=== PATIENT | male | born 1950 | race Caucasian/White ===

== ENCOUNTER 2019-08-31 18:13 | Emergency (ER) | payer BC, OTHER ==
[2019-08-31] MEDS ORDERED: LIDOCAINE 1% W/EPI 1:100,000 MDV 20 ML VIAL ONE (18:31)
[2019-08-31] MEDS ORDERED: CEPHALEXIN 250 MG CAP ONE (19:48)
[2019-08-31] MEDS ORDERED: HYDROCODONE/APAP 7.5/325 MG TAB ONE (19:48)
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
--- NOTE | 2019-08-31 20:07 | RAD REPORT ---
EXAM DESCRIPTION: RAD - Knee Left 3 View - 08/31/2019 7:37 pm CLINICAL HISTORY: PAIN COMPARISON: No comparisons FINDINGS: Left total knee arthroplasty is present. Soft tissue swelling is seen the anterior aspect of the knee. Small joint effusion. No fracture evident.
[2019-08-31 23:02] VITALS: BP 107/63; TEMP 97; O2SAT 97
== END 2019-08-31 20:42 | disposition home or self-care (01) ==
LOC: ER 18:13
PROC: 0JQP0ZZ Repair Left Lower Leg Subcutaneous Tissue and Fascia, Open Approach (ICD-10-PCS; principal; 2019-08-31)
DX: S81.012A Laceration without foreign body, left knee, initial encounter (principal); V18.0XXA Pedal cycle driver injured in noncollision transport accident in nontraffic accident, initial encounter; Y93.89 Activity, other specified; Y92.89 Other specified places as the place of occurrence of the external cause
CPT/HCPCS: 99284

== ENCOUNTER 2019-09-09 09:16 | Emergency (ER) | payer OTHER ==
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
--- NOTE | 2019-09-09 09:42 | EDPHYS ---
Physician Documentation [facility] Name: Weston Osborn Jr Age: 69 yrs Sex: Male : 1950 Arrival Date: 09/09/2019 Time: 09:17 Bed 13 Private MD: ED Physician Kim Ferrer HPI: 09/09 09:42 This 69 yrs old Male presents to ER via Ambulatory with complaints of jmm Incision Problem - wound check. 09:42 Patient presents to ED for recheck of: laceration. The affected area is on the right jmm leg. Previous treatment: sutures. The patient has not experienced similar symptoms in the past. This is a 69 year old male with a history of htn that presents to the ED with complaints of a laceration to his right leg which was sutured 9 days ago. Patient states his lower anterior leg is tender and will become red. Patient denies fever or chills but is concerned his wound may now be infected. Patient states the redness is relieved after elevating his leg. . Historical: - Allergies: 09:28 No Known Allergies; ss - PMHx: 09:28 Hypertension; ss - Immunization history:: Adult Immunizations up to date. - Social history:: Smoking status: Patient/guardian denies using tobacco. - Ebola Screening: : Patient denies exposure to infectious person Patient denies travel to an Ebola-affected area in the 21 days before illness onset. ROS: 09:42 Constitutional: Negative for fever, chills, and weight loss, Cardiovascular: Negative jmm for chest pain, palpitations, and edema, Respiratory: Negative for shortness of breath, cough, wheezing, and pleuritic chest pain. 09:42 Skin: Positive for erythema. 09:42 All other systems are negative. Exam: 09:42 Constitutional: This is a well developed, well nourished patient who is awake, alert, jmm and in no acute distress. Head/Face: atraumatic. Eyes: EOMI, no conjunctival erythema appreciated ENT: Moist Mucus Membranes Neck: Trachea midline, Supple Chest/axilla: Normal chest wall appearance and motion. Cardiovascular: Regular rate and rhythm. No edema appreciated Respiratory: Normal respirations, no respiratory distress appreciated Abdomen/GI: Non distended, soft Back: Normal ROM 09:42 Musculoskeletal/extremity: FROM appreciated to the right knee. No edema appreciated to the lower extremity, compartments are soft, NVI. 09:42 Skin: erythema noted along the laceration. non tender to palpation. 09:42 Neuro: Orientation: is normal, Mentation: is normal, Memory: is normal. 09:42 Psych: Behavior/mood is pleasant, cooperative. Vital Signs: 09:25 BP 119 / 93; Pulse 69; Resp 16; Temp 98.0(O); Pulse Ox 100% on R/A; Weight 97.52 kg; ss Height 5 ft. 7 in. (170.18 cm); Pain 0/10; 09:25 Body Mass Index 33.67 (97.52 kg, 170.18 cm) ss MDM: 09:34 Patient medically screened. [facility] 09:39 Data reviewed: vital signs, nurses notes. Counseling: I had a detailed discussion with [facility] the patient and/or guardian regarding: the historical points, exam findings, and any diagnostic results supporting the discharge/admit diagnosis, the need for outpatient follow up, to return to the emergency department if symptoms worsen or persist or if there are any questions or concerns that arise at home. ED course: Patient given wound infection return precautions. . 09:48 ED course: Patient is alert and non toxic in appearance in the ED. Patient was given [facility] wound infection return precautions. Patient advised to not remove sutures at this time due to concerns for dehiscence. Patient may have an early cellulitis due to complaints of increased swelling and pain to the lower leg. Patient will be prescribed oral abx and is given strict return precautions. Patient understood and agrees with the plan of care. . Administered Medications: No medications were administered Disposition: 15:18 Co-signature as Attending Physician, Kim Ferrer MD. ma2 Disposition: 09/09/19 09:40 Discharged to Home. Impression: Encounter for change or removal of nonsurgical wound dressing. - Condition is Stable. - Discharge Instructions: Stitches, Jasper, or Adhesive Wound Closure. - Prescriptions for Bactrim DS 800- 160 mg Oral Tablet - take 1 tablet by ORAL route every 12 hours for 7 days; 14 tablet. - Medication Reconciliation Form, Thank You Letter, Antibiotic Education, Prescription Opioid Use form. - Follow up: Private Physician; When: 2 - 3 days; Reason: Recheck today's complaints, Continuance of care, Re-evaluation by your physician. Signatures: Tonya Pool RN RN Con Bruno PA PA jmm Smirch, Shelby, RN RN Kim Ferrer MD MD ma2 Corrections: (The following items were deleted from the chart) 09:50 09:40 09/09/2019 09:40 Discharged to Home. Impression: Encounter for change or removal sv of nonsurgical wound dressing. Condition is Stable. Forms are Medication Reconciliation Form, Thank You Letter, Antibiotic Education, Prescription Opioid Use. Follow up: Private Physician; When: 2 - 3 days; Reason: Recheck today's complaints, Continuance of care, Re-evaluation by your physician. dolores
[2019-09-09 09:56] VITALS: BP 119/93; TEMP 98; O2SAT 100
== END 2019-09-09 09:50 | disposition home or self-care (01) ==
LOC: ER 09:16
DX: Z48.00 Encounter for change or removal of nonsurgical wound dressing (principal); I10 Essential (primary) hypertension
CPT/HCPCS: 99282

== ENCOUNTER 2025-07-02 08:03 | Emergency (ER) | payer OTHER ==
[2025-07-02] MEDS ORDERED: ACETAMINOPHEN 500 MG TAB ONE (08:23)
[2025-07-02 09:00] LABS: Absolute Lymphocytes (CBC) 0.2 K/uL (0.7-4.9); Hematocrit 39.9 % (39.6-49.0); Hemoglobin 12.7 g/dL (13.6-17.9); MCH 25.9 pg (27.0-35.0); MCHC 31.9 g/dL (32.0-36.0); MCV 81.3 fL (80-100); MPV 9.2 fL (7.6-11.3); Nucleated RBC Absolute Count 0.0 (0-0); Nucleated Red Blood Cells % 0.0 % (0-0); RBC Red Blood Cell Count 4.91 M/uL (4.33-5.43); White Blood Count 16.00 thou/uL (4.3-10.9)
[2025-07-02 09:10] LABS: PT Prothrombin Time 13.4 SECONDS (10-13.0); PTT, Activated Partial Thromb 27.7 SECONDS (27.2-37.4); Protime INR 1.19
[2025-07-02 09:20] LABS: ALT/SGPT 47.0 U/L (16-61); AST/SGOT 13.0 U/L (15-37); Albumin 3.1 g/dL (3.4-5.0); Albumin/Globulin Ratio 0.9 (1.1-1.8); Alkaline Phosphatase 73.0 U/L (45-117); Anion Gap 10.0 mEq/L (5.0-15.0); BUN Blood Urea Nitrogen 21.0 mg/dL (7-18); Globulin 3.4 g/dL (2.3-3.5); Glucose Level 117.0 mg/dL (74-106); Potassium 4.0 mEq/L (3.5-5.1)
[2025-07-02 09:24] LABS: Influenza A Ag Negative; Influenza B Ag Negative; SARS-CoV-2 Antigen Rapid Res Negative (Negative)
[2025-07-02] MEDS ORDERED: CLINDAMYCIN 600MG/D5W 50 ML IV ONE (09:33)
--- NOTE | 2025-07-02 10:26 | RAD REPORT ---
EXAM:Extremity Venous Uni Ltd HISTORY: Right leg pain TECHNIQUE: Sonographic evaluation right lower extremity performed.Grayscale, color and spectral franco sis performed on all vessels COMPARISON: None. FINDINGS: Right common femoral, superficial femoral, greater saphenous, popliteal and posterior tibial veins ar e compressible and demonstrate augmentation. Doppler demonstrates good flow. 3.7 x 1.4 x 1.9 cm right inguinal lymph node IMPRESSION: No evidence of deep venous thrombosis involving the right lower extremity.
--- NOTE | 2025-07-02 10:31 | ER ---
Nurse's Notes [facility] Name: Weston Osborn Jr Age: 74 yrs Sex: Male : 1950 Arrival Date: 07/02/2025 Time: 08:03 Bed 23 Private MD: Diagnosis: Cellulitis of right lower limb;Unilateral inguinal hernia, without obstruction or gangrene Presentation: 07/02 08:16 Chief complaint: Patient states: RLE swelling, redness, pain for 2 days. Fever up to ll1 102 at home. Coronavirus screen: Client denies travel out of the [place] in the last 14 days. At this time, the client does not indicate any symptoms associated with coronavirus-19. Ebola Screen: Patient denies travel to an Ebola-affected area in the 21 days before illness onset. Initial Sepsis Screen: Does the patient meet any 2 criteria? No. Patient's initial sepsis screen is negative. Does the patient have a suspected source of infection? No. Patient's initial sepsis screen is negative. Risk Assessment: Do you want to hurt yourself or someone else? Patient reports no desire to harm self or others. Onset of symptoms was July 01, 2025. 08:16 Method Of Arrival: Ambulatory ll1 08:16 Acuity: EUNICE 3 ll1 Historical: - Allergies: 09:00 No Known Allergies; mb9 - PMHx: 09:00 Hypertension; mb9 - PSHx: 09:00 None; mb9 - Immunization history:: Adult Immunizations up to date. - Infectious Disease History:: Denies. - Social history:: Smoking status: Patient denies any tobacco usage or history of. Screenin:58 [facility] ED Fall Risk Assessment (Adult) History of falling in the last 3 months, mb9 including since admission No falls in past 3 months (0 pts) Confusion or Disorientation No (0 pts) Intoxicated or Sedated No (0 pts) Impaired Gait No (0 pts) Mobility Assist Device Used No (0 pt) Altered Elimination No (0 pt) Score/Fall Risk Level 0 - 2 = Low Risk Oriented to surroundings, Maintained a safe environment, Educated pt \T\ family on fall prevention, incl call for assistance when getting out of bed. Abuse screen: Denies threats or abuse. Nutritional screening: No deficits noted. Tuberculosis screening: No symptoms or risk factors identified. Assessment: 08:57 General: Appears in no apparent distress. Behavior is calm, cooperative. Pain: mb9 Complains of pain in right leg Pain does not radiate. Pain currently is 5 out of 10 on a pain scale. Quality of pain is described as throbbing, Pain began suddenly. Neuro: Wilde Agitation-Sedation Scale (RASS): 0 - Alert and Calm Level of Consciousness is awake, alert, obeys commands, Oriented to person, place, time, situation, Appropriate for age. Cardiovascular: Heart tones S1 S2 present Patient's skin is warm and dry. Respiratory: Reports cough that is Airway is patent Respiratory effort is even, unlabored, Respiratory pattern is regular, symmetrical, Breath sounds are clear bilaterally. GI: Abdomen is round non-distended, Bowel sounds present X 4 quads. Abd is soft and non tender X 4 quads. : No signs and/or symptoms were reported regarding the genitourinary system. EENT: Reports nasal congestion. Derm: Skin is pink, warm \T\ dry. Musculoskeletal: Range of motion: intact in all extremities, 09:43 Reassessment: Patient appears in no apparent distress at this time. No changes from mb9 previously documented assessment. Patient and/or family updated on plan of care and expected duration. Pain level reassessed. Patient is alert, oriented x 3, equal unlabored respirations, skin warm/dry/pink. 09:43 Reassessment: Ultrasound at bedside. mb9 10:45 Reassessment: D/C pending IV fluids. mb9 11:54 Reassessment: No changes from previously documented assessment. Patient and/or family mb9 updated on plan of care and expected duration. Pain level reassessed. Patient is alert, oriented x 3, equal unlabored respirations, skin warm/dry/pink. Vital Signs: 08:16 BP 125 / 57; Pulse 83; Resp 18; Temp 101.2; Pulse Ox 99% ; Weight 90.72 kg; Height 5 ll1 ft. 8 in. ; Pain 5/10; 09:42 BP 109 / 57; Pulse 68; Resp 18; Temp 98.9(O); Pulse Ox 100% on R/A; mb9 10:45 BP 97 / 77; Pulse 85; Resp 18; Pulse Ox 98% ; mb9 11:11 BP 100 / 57; Pulse 60; Resp 18; Pulse Ox 100% on R/A; mb9 11:54 BP 104 / 58; Pulse 70; Resp 18; Pulse Ox 100% on R/A; mb9 08:16 Body Mass Index 30.41 (90.72 kg, 172.72 cm) ll1 08:16 Pain Scale: Adult ll1 ED Course: 08:11 Patient arrived in ED. im 08:14 [facility] Ott [facility]C [facility]. kb 08:14 Norberto Fernando MD is Attending Physician. kb 08:17 Triage completed. ll1 08:25 Arm band placed on Patient placed in an exam room, on a stretcher. ll1 08:25 Patient has correct armband on for positive identification. Bed in low position. ll1 Provided Education on: ER procedures and process. Warm blanket given. 08:28 Mel Pisano RN is Primary Nurse. mb9 08:40 Initial lab(s) drawn, by me, sent to lab. EKG done, by ED staff, reviewed by Dacia BUSBY. Inserted saline lock: 20 gauge in right forearm, using aseptic technique. Blood collected. Flushed with 10 mL NS. 08:56 COVID-19 Ag + Flu A+B Ag Sent. mb9 09:53 US Extremity Venous Unilateral Ltd In Process Unspecified. EDMS 10:30 David Jaramillo MD is Referral Physician. kb 10:46 No provider procedures requiring assistance completed. mb9 11:54 IV discontinued, intact, bleeding controlled, No redness/swelling at site. Pressure mb9 dressing applied. Administered Medications: 08:35 Drug: Acetaminophen PO 1000 mg PO once Route: PO; mb9 10:02 Follow up: Response: No adverse reaction; Temperature is decreased; Pain is decreased mb9 09:35 CANCELLED (Duplicate Order): [id number] mg IVPB once over 30 mins; (mix in 50 mL) kb 09:39 Drug: Clindamycin IVPB 600 mg IVPB once over 30 mins; (mix in 50 mL) Route: IVPB; mb9 Infused Over: 30 mins; Site: right forearm; 11:54 Follow up: IV Status: Completed infusion mb9 10:45 Drug: NS 0.9% IV 1000 ml IV at 1000 ml once; to be given as a bolus over 60 minutes mb9 Route: IV; Rate: 1000 ml; Site: right forearm; 11:54 Follow up: Response: No adverse reaction; IV Status: Completed infusion mb9 Medication: 09:00 VIS not applicable for this client. mb9 Outcome: 10:31 Discharge ordered by . aditi 11:54 Discharged to home ambulatory, mb9 11:54 Condition: stable 11:54 Discharge instructions given to patient, family, Instructed on discharge instructions, follow up and referral plans. Demonstrated understanding of instructions, follow-up care, medications, Prescriptions given X 1, 12:01 Patient left the ED. mb9 Signatures: Dispatcher [employer] EDMS Dacia Ott, OUSMANE-C Raphael Telles RN RN ll1 Mel Pisano RN RN mb9 Alicia Muñoz Corrections: (The following items were deleted from the chart) 08:25 08:15 Arm band placed on Patient placed in an exam room, on a stretcher, ll1 ll1 08:39 08:16 BP 125 / 57; Pulse 83bpm; Pulse Ox 99%; Temp 101.2F; 90.72 kg; Height 5 ft. 8 ll1 in.; BMI: 30.4; Pain 5/10, Adult; ll1 10:45 10:37 No provider procedures requiring assistance completed. mb9 mb9 10:45 10:37 IV discontinued, intact, bleeding controlled, No redness/swelling at site. mb9 Pressure dressing applied, mb9
--- NOTE | 2025-07-02 10:31 | EDPHYS ---
Physician Documentation [facility] Name: Weston Osborn Jr Age: 74 yrs Sex: Male : 1950 Arrival Date: 07/02/2025 Time: 08:03 Bed 23 Private MD: ED Physician Norberto Fernando HPI: 07/02 08:22 This 74 yrs old Male presents to ER via Ambulatory with complaints of Fever, Leg Pain, kb Groin hernia. 08:22 Pt is a 74 year old male who presents for redness, pain and swelling to right lower leg kb that started 36 hours ago with fever and chills. Also reports hernia to groin that has been there for years and he would like it looked at. . Historical: - Allergies: 09:00 No Known Allergies; mb9 - PMHx: 09:00 Hypertension; mb9 - PSHx: 09:00 None; mb9 - Immunization history:: Adult Immunizations up to date. - Infectious Disease History:: Denies. - Social history:: Smoking status: Patient denies any tobacco usage or history of. ROS: 08:21 Constitutional: As per HPI kb Exam: 08:21 Constitutional: This is a well developed, well nourished patient who is awake, alert, kb and in no acute distress. Head/Face: Normocephalic, atraumatic. ENT: Moist Mucous membranes Cardiovascular: Regular rate Respiratory: Respirations even and unlabored. No increased work of breathing. Talking in full sentences MS/ Extremity: Pulses equal, no cyanosis. Neurovascular intact. Full, normal range of motion. Neuro: Awake and alert, GCS 15, oriented to person, place, time, and situation. 08:21 Skin: cellulitis, that is moderate, on the right blake, 09:14 ECG was reviewed by the Attending Physician. kb 10:29 Abdomen/GI: Inspection: abdomen appears normal, Hernia: noted in the left inguinal kb area, easily reduced, Vital Signs: 08:16 BP 125 / 57; Pulse 83; Resp 18; Temp 101.2; Pulse Ox 99% ; Weight 90.72 kg; Height 5 ll1 ft. 8 in. ; Pain 5/10; 09:42 BP 109 / 57; Pulse 68; Resp 18; Temp 98.9(O); Pulse Ox 100% on R/A; mb9 10:45 BP 97 / 77; Pulse 85; Resp 18; Pulse Ox 98% ; mb9 11:11 BP 100 / 57; Pulse 60; Resp 18; Pulse Ox 100% on R/A; mb9 11:54 BP 104 / 58; Pulse 70; Resp 18; Pulse Ox 100% on R/A; mb9 08:16 Body Mass Index 30.41 (90.72 kg, 172.72 cm) ll1 08:16 Pain Scale: Adult ll1 MDM: 08:14 Medical Screening Exam initiated kb 10:29 Differential diagnosis: abscess, DVT, cellulitis. Data reviewed: vital signs, nurses kb notes. Consideration of Admission/Observation Escalation of care including admission/observation considered. admission considered but pt does not want to stay in the hospital at this time. Wants to take oral antibiotics at home and will return for worsening symptoms. Pt given strict return precautions. Counseling: I had a detailed discussion with the patient and/or guardian regarding the historical points, exam findings, and any diagnostic results supporting the discharge/admit diagnosis, lab results, radiology results, the need for further work-up and treatment in the hospital. 07/02 08:22 Order name: Blood Culture Adult (2) kb 07/02 08:22 Order name: CBC with Diff kb 07/02 08:22 Order name: CMP; Complete Time: 09:25 kb 07/02 08:22 Order name: Lactate w/ 2H reflex if indic.; Complete Time: 09:25 kb 07/02 08:22 Order name: Protime (+inr); Complete Time: 09:11 kb 07/02 08:22 Order name: Ptt, Activated; Complete Time: 09:11 kb 07/02 08:22 Order name: COVID-19 Ag + Flu A+B Ag; Complete Time: 09:25 kb 07/02 09:28 Order name: US Extremity Venous Unilateral Ltd; Complete Time: 10:28 kb 07/02 08:22 Order name: Cardiac monitoring; Complete Time: 08:56 kb 07/02 08:22 Order name: IV Saline Lock - Large Bore; Complete Time: 08:56 kb 07/02 08:22 Order name: Labs collected and sent; Complete Time: 08:56 kb 07/02 08:22 Order name: O2 Per Protocol; Complete Time: 08:35 kb 07/02 08:22 Order name: O2 Sat Monitoring; Complete Time: 08:35 kb 07/02 08:22 Order name: Vital Signs; Complete Time: 08:35 kb EC:14 Rate is 78 beats/min. Rhythm is regular. QRS Kinsman is Normal. DE interval is normal at kb 190 msec. QRS interval is normal at 126 msec. QT interval is normal at 446 msec. Administered Medications: 08:35 Drug: Acetaminophen PO 1000 mg PO once Route: PO; mb9 10:02 Follow up: Response: No adverse reaction; Temperature is decreased; Pain is decreased mb9 09:35 CANCELLED (Duplicate Order): [id number] mg IVPB once over 30 mins; (mix in 50 mL) kb 09:39 Drug: Clindamycin IVPB 600 mg IVPB once over 30 mins; (mix in 50 mL) Route: IVPB; mb9 Infused Over: 30 mins; Site: right forearm; 11:54 Follow up: IV Status: Completed infusion mb9 10:45 Drug: NS 0.9% IV 1000 ml IV at 1000 ml once; to be given as a bolus over 60 minutes mb9 Route: IV; Rate: 1000 ml; Site: right forearm; 11:54 Follow up: Response: No adverse reaction; IV Status: Completed infusion mb9 Disposition: 07/03 07:31 Co-signature as Attending Physician, Norberto Fernando MD I agree with the assessment and nicole plan of care. Disposition Summary: 07/02/25 10:31 Discharge Ordered Notes: Location: Home Condition: Stable kb Diagnosis - Cellulitis of right lower limb kb - Unilateral inguinal hernia, without obstruction or gangrene kb Followup: kb - With: Emergency Department - When: As needed - Reason: Worsening of condition Followup: kb - With: Private Physician - When: 2 - 3 days - Reason: Recheck today's complaints, Continuance of care, Re-evaluation by your physician Followup: kb - With: David Jaramillo MD - When: 2 - 3 days - Reason: Recheck today's complaints Discharge Instructions: - Discharge Summary Sheet kb - Inguinal Hernia, Adult, [id number] kb - Cellulitis, Adult, [id number] kb Forms: - Medication Reconciliation Form kb - Antibiotic Education kb - Prescription Opioid Use kb - Patient Portal Instructions kb - Leadership Thank You Letter kb Prescriptions: - Clindamycin HCl 300 mg Oral Capsule - take 1 capsule ORAL route every 6 hours for 10 days; 40 capsule; Refills: 0, kb Product Selection Permitted Signatures: Dispatcher [employer] EDDacia Bucio, COIN PURSE FRAMER-C COIN PURSE FRAMER-Ckb Norberto Fernando MD MD cha Lewis, Lynsay, RN RN ll1 Norris, Mel Wasserman, RN RN mb9 Corrections: (The following items were deleted from the chart) 07/02 08:23 08:22 BLOOD CULTURE*+BA.LAB.BRZ ordered. EDMS EDMS 08:23 08:22 CBC+H.LAB.BRZ ordered. EDMS EDMS 08:23 08:22 COMPREHENSIVE METABOLIC PANEL+C.LAB.BRZ ordered. EDMS EDMS 08:23 08:22 LACTATE+C.LAB.BRZ ordered. EDMS EDMS 08:23 08:22 PROTIME (+INR)+COAG.LAB.BRZ ordered. EDMS EDMS 08:23 08:22 PTT, ACTIVATED+COAG.LAB.BRZ ordered. EDMS EDMS 08:23 08:22 COVID-19 Ag + Flu A+B Ag+I.LAB.BRZ ordered. EDMS EDMS 09:28 09:28 Extremity Venous Uni Ltd+US.RAD.BRZ ordered. EDMS EDMS 09:35 09:26 Clindamycin IVPB 300 mg IVPB once over 30 mins; (mix in 50 mL) ordered. kb kb
[2025-07-02] MEDS ORDERED: NA CHLORIDE 0.9% 1,000 ML ONE (10:32)
[2025-07-02 12:12] VITALS: TEMP 98.9
[2025-07-02 12:14] VITALS: O2SAT 100
[2025-07-02 12:15] VITALS: BP 104/58
[2025-07-02 12:19] LABS: Blood Morphology Comment NOTED (NOT SEEN); White Blood Cell Scan OK (OK)
[2025-07-02 12:20] LABS: Ovalocytes SLIGHT
== END 2025-07-02 12:01 | disposition home or self-care (01) ==
LOC: ER 08:03
DX: L03.115 Cellulitis of right lower limb (principal); K40.90 Unilateral inguinal hernia, without obstruction or gangrene, not specified as recurrent; Z11.52 Encounter for screening for COVID-19
CPT/HCPCS: 96365; 93005; 87040 ×2; 85025; 36415; 85610; 83605; 85730; 80053; 93971; 99284; 96366; 87428; J7030